=== PATIENT | female | born 1985 | race Two or more races ===

== ENCOUNTER 2018-07-25 08:00 | Day surgery (SDC) | payer OTHER ==
[~2018-07-25] VITALS: Ht 172.7 cm; Wt 87.5 kg
[~2018-07-25 08:00] MED LIST: VIT D PO
[2018-07-25] MEDS ORDERED: PERCOCET 5-3251 EACH PO (13:47)
== END 2018-07-25 17:17 | disposition home or self-care (01) ==
LOC: CIR.AMB 08:00
DX: D27.0 Benign neoplasm of right ovary (principal)